=== PATIENT | male | born 1990 | race Caucasian/White ===

== ENCOUNTER 2023-04-23 00:40 | Emergency (ER) | payer SELFPAY ==
[2023-04-23 00:43] VITALS: BP 137/87
[2023-04-23 01:38] VITALS: BP 128/89; BMI 25.7
[2023-04-23 02:04] LABS: % Basophils 0.5 % (0-2); % Eosinophils 0.9 % (0-6); % Immature Granulocytes 0.3 % (0-0.5); % Lymphocytes 18.8 % (20.5-51.1); % Monocytes 11.2 % (1.7-9.3); % Neutrophils 68.3 % (42.2-75.2); Absolute Basophils 0.1 10^3/uL (0-0.2); Absolute Eosinophils 0.1 10^3/uL (0-0.7); Absolute Lymphocytes 2.7 10^3/uL (1.2-3.4); Absolute Monocytes 1.6 10^3/uL (0.1-0.6); Absolute Neutrophils 9.7 10^3/uL (1.4-6.5); Hematocrit 44.8 % (39.0-52.0); Hemoglobin 16.1 g/dL (13.0-18.0); Mean Corp Hgb Conc. 35.9 g/dL (33.0-37.0); Mean Corpuscular Hgb 31.1 pg (27.0-31.0); Mean Corpuscular Volume 86.7 fL (80.0-94.0); Mean Platelet Volume 10.3 fL (7.4-10.4); Nucleated Red Blood Cells % 0 % (-); Platelet Count 272 10^3/uL (130-400); Red Blood Cell Count 5.17 10^6/uL (4.70-6.10); Red Cell Dist. Width 12.3 % (11.5-14.5); White Blood Cell Count 14.2 10^3/uL (4.8-10.8)
[2023-04-23 02:21] LABS: ALT (SGPT) 55 U/L (0-50); AST (SGOT) 35 U/L (17-59); Albumin 4.5 g/dl (3.5-5.0); Alkaline Phosphatase 71 U/L (38-126); Blood Urea Nitrogen 15 mg/dl (9-20); Calcium 9.3 mg/dl (8.4-10.2); Carbon Dioxide 26 mmol/L (22-30); Chloride 100 mmol/L (98-107); Estimated Creatinine Clearance > 125 ml/min; Glucose 102 mg/dl (70-99); Potassium 3.5 mmol/L (3.5-5.1); Sodium 137 mmol/L (135-145); Total Protein 7.8 g/dl (6.3-8.2); eGFR > 60.00
--- NOTE | 2023-04-23 02:50 | ED.GENMED ---
History of Present Illness
General
Chief Complaint: Musculo-Skeletal Complaint
Source: patient
Exam Limitations: none
Time Seen by Provider: 04/23/23 02:35
Travel History
Have you had any contact with someone who has COVID-19?: No
Do you have any symptoms of coronavirus? Fever > 100 degrees, chills, cough, shortness of breath, sore throat, loss of taste or smell, muscle aches, or headache?: No
History of Present Illness
History of Present Illness:
See MDM
Past History
Past History
ED Past Medical History: None
ED Past Surgical History: None
Social History
Tobacco: Non-smoker
Alcohol: None
Phy Exam
Physical Exam
Physical Exam:
See MDM
Course
Orders/Labs/Results
Orders:
Orders
04/23/23 00:56
Electrocardiogram (*1) Urgent
Reason for Study: Chest Pain
EKG- Treatment ONCE
04/23/23 01:59
CBC/With Diff [Complete Blood Count/With Diff] Urgent
Comprehensive Metabolic Panel Urgent
Blood Culture Urgent
REX Source: Blood/Venous
Specimen Description:
04/23/23 02:48
CT Chest Pe Study Urgent
Comment:
Reason For Exam: SOB, chest and back pain
0.9% Sodium Chloride 1000 ml [Nss] 1,000 ml IV BOLUS
Ketorolac [Toradol] 30 mg IV NOW STA
diazePAM [Valium Injection] 2 mg IV NOW STA
04/23/23 04:00
Urinalysis Reflex To Culture Urgent
Date Specimen was Collected: 04/23/23
Time Specimen was Collected: 03:05
Urine Microscopic Reflex Cult Urgent
Urine Culture Urgent
REX Source: U
Specimen Description:
Date Specimen was Collected: 04/23/23
Time Specimen was Collected: 03:05
Abnormal Lab Results
04/23/23 04/23/23
01:59 04:00
WBC 14.2 H 10^3/uL
(4.8-10.8)
MCH 31.1 H pg
(27.0-31.0)
Absolute Neuts (auto) 9.7 H 10^3/uL
(1.4-6.5)
Absolute Monos (auto) 1.6 H 10^3/uL
(0.1-0.6)
Lymphocytes % 18.8 L %
(20.5-51.1)
Monocytes % 11.2 H %
(1.7-9.3)
Glucose 102 H mg/dl
(70-99)
ALT 55 H U/L
(0-50)
Leukocyte Esterase Rfl 1+ A
(Negative)
Urine WBC (Reflex) 26-30 A /HPF
(0-5)
04/23/23 01:59
04/23/23 01:59
Vital Signs
Initial and Last Documented VS:
Initial Vital Signs
Temp Pulse Resp BP Pulse Ox
99.0 F 118 18 137/87 98
04/23/23 00:43 04/23/23 00:43 04/23/23 00:43 04/23/23 00:43 04/23/23 00:43
Last Documented Vital Signs
Temp Pulse Resp BP Pulse Ox
98.5 F 106 20 115/82 98
04/23/23 04:06 04/23/23 04:02 04/23/23 04:02 04/23/23 04:02 04/23/23 04:02
MDM/Problems Addressed
Differential Diagnosis Includes:
HPI and MDM Narrative:
33-year-old male presenting with shortness of breath, cough and back pain. Patient states symptoms occurred earlier this morning and he initially thought this was a pinched nerve from sleeping on it incorrectly. He was in [place] for work and
he went to nearby hospital. He had blood work done showing an elevated blood cell count of 21. Given his back pain, he was told he needs a lumbar puncture. Patient left the hospital to be closer to home.
Blood work was rechecked and his white count is 14. He denies headache or fever. On exam, he has muscle spasm localized to his mid thoracic back. He has no meningeal signs and he is afebrile. I discussed that he likely does not have meningitis.
It was a shared decision making to not obtain LP. Given his tachycardia, shortness of breath and back pain, will obtain CT PE
Physical exam
General: Well appearing and non-toxic
HEENT: protecting airway
Neck: supple. No meningismus
CV: No evidence of cyanosis. Mild tachycardia
Resp: No accessory muscle use
Abd: Non-distended
Back: Spasm to mid thoracic musculature
Extremities: No deformities
Neuro: alert
Psych: Normal affect
Skin: Intact
Problems Addressed including Acute and Chronic Conditions affecting care:
1. Back pain
Acuity: acute
Prognosis: stable
Details: Will treat spasm with Valium and Toradol
2. Shortness of breath
Acuity: acute
Prognosis: stable
Details: Will obtain CT to rule out PE
Updates
CT negative for PE or acute pathology. On reassessment, patient states he is feeling much better after Toradol and muscle relaxant. Patient states he can finally take a deep breath without pain. Patient was explaining to the nurse earlier in the
evening that he recently was doing heavy lifting. This would explain the muscle spasm and symptoms. Regardless, patient feels comfortable going home
Differential Diagnosis (but not limited to): Pulmonary embolism, pneumonia, viral syndrome
Testing considered: Troponin but patient presents with blood work indicating normal troponin
Drug therapy (if applicable): OTC meds, please see d/c instruction regarding Rx drugs
Amount and/or Complexity of Data Reviewed
Clinical info obtained from: Patient
External data reviewed: N/A
Labs I independently reviewed (but not limited to): Mild leukocytosis
Radiology: The CT scan was personally and independently reviewed. In addition, official CT report reviewed.
Pulse Ox: not hypoxic
EKG independently reviewed: Sinus rhythm, normal axis, no STEMI
Table Top Tile Setter: N/A
Critical Care: N/A
Risk of Complication:
Social Determinants of health: Good social support
Discussed with other providers: N/A
Escalation of Care includes Admit/Obs: After being observed in the Emergency Department, pt stable for discharge.
Occasional wrong word or 'sound a like' substitutions may have occurred due to the inherent limitations of voice recognition software. Read the chart carefully and recognize, using context, where substitutions have occurred.
*Critical Care Note
Total Time (30-74mins, 75-104mins- exclusive of procedures): Not Applicable
ED Attending Note
-
Portions of this chart may have been created with voice recognition software.� Occasional wrong word or��sound alike� substitutions may have occurred due to the inherent limitations of voice recognition software.
Discharge Plan
Departure
Patient Disposition: Home (Routine Discharge)
Date of Disposition: 04/23/23
Time of Disposition: 04:57
Patient with high blood pressure during this ER visit?: No
Discharge Problem:
Back spasm
Instructions: Muscle Spasm ED
Prescriptions:
New
diclofenac potassium 50 mg tablet
50 mg PO BID Qty: 20 0RF
metaxalone 800 mg tablet
800 mg PO TID PRN (Reason: muscle pain) Qty: 14 0RF
Referrals:
NONE,* [Family Provider] -
Activity Restrictions/Additional Instructions:
Please return for any worsening symptoms.
You may return at any time if you have further concerns.
Please follow up with your doctor at the first available appointment, preferably this week.
Thank you for choosing [facility].
Interventions
Interventions:
*Risk Screen - Suicide Last Done: 04/23/23 00:43
*General Assessment Last Done: 04/23/23 00:43
*Neglect/Abuse Screening Last Done: 04/23/23 00:43
ED- Fall Risk Assessment Last Done: 04/23/23 01:40
*ED COVID-19 Vaccine History Last Done: 04/23/23 00:43
ED-Musculoskeletal Assessment Last Done: 04/23/23 01:40
[2023-04-23] MEDS: TORADOL 30 MG IV (02:54)
[2023-04-23] MEDS: NSS 1000 IV (02:54)
[2023-04-23] MEDS: VALIUM INJECTION 2 MG IV (02:55)
[2023-04-23 03:06] VITALS: BP 126/87
[2023-04-23 04:02] VITALS: BP 115/82
[2023-04-23 04:12] LABS: Urine Albumin Negative (Neg - Trace); Urine Bilirubin Negative (Negative); Urine Character Slightly Cloudy (Clear); Urine Color Yellow; Urine Glucose Negative (Negative); Urine Ketone Negative (Negative); Urine Leukocyte 1+ (Negative); Urine Nitrite Negative (Negative); Urine Occult Blood Negative (Negative); Urine Urobilinogen 1+ (Neg - 1+)
[2023-04-23 04:19] LABS: Urine Squamous Cell 16-20 /LPF (Few)
[2023-04-23 04:20] LABS: Urine Red Blood Cell None Seen /HPF (0-2); Urine White Cell 26-30 /HPF (0-5)
[2023-04-23 05:07] VITALS: BP 128/91
== END 2023-04-23 05:47 | disposition home or self-care (01) ==
LOC: EMR 00:40
PROVIDERS: EMERGENCY PHYSICIAN Student in an Organized Health Care Education/Training Program
DX: M62.830 Muscle spasm of back (principal)
CPT/HCPCS: 99284; 96374; 96375; 96361; 71275; 80053; 81003; 81015; 85025; 87040; 87086; 93005; Q9967